=== PATIENT | female | born 1940 ===

== ENCOUNTER 2021-07-27 13:08 | Emergency (ER) | payer MEDICARE, OTHER ==
[2021-07-27] MEDS ORDERED: PROPARACAINE 0.5% OPHTH DROPS 15 ML BTL BOTH EYES STA (14:00)
--- NOTE | 2021-07-27 14:19 | CT ---
EXAMINATION TYPE: CT brain wo con DATE OF EXAM: 07/27/2021 COMPARISON: None HISTORY: Headache and visual disturbance. CT DLP: 1158.[address] of the brain was performed. The ventricles, basal cisterns and sulci overlying the cerebral convexities demonstrate mild enlargem ent. There is no evidence for intracranial hemorrhage or sulcal effacement. There is decreased attenuation about the periventricular white matter and deep white matter of both c erebral hemispheres, compatible with chronic small vessel ischemia. Differential diagnosis does inclu de demyelination. No mass effects are seen.No midline shift. Osseous calvarium is intact. Chronic paranasal sinusitis. If symptoms persist consider MRI. IMPRESSION: 1. Age related atrophic and chronic small vessel ischemic change without acute intracranial process s een at this time.
--- NOTE | 2021-07-27 14:28 | ED ---
General Adult HPI - General Source: patient, family, RN notes reviewed, old records reviewed Mode of arrival: ambulatory Limitations: no limitations <Kali Guzman - Last Filed: 07/27/21 14:50> <Leah Lira - Last Filed: 07/27/21 22:54> - General Chief complaint: Headache Stated complaint: Headache Time Seen by Provider: 07/27/21 13:47 - History of Present Illness Initial comments: 80-year-old female history of hypertension diabetes presents for evaluation of headache. Patient had been seen by the community living coach and had reported some headache with visual disturbances. She has a history of migraine headaches. The history is obtained from the patient and her son who is at bedside. She does not speak fluent [place]. She reports that she's had headache over the past one month. Proximally 45 times which was preceded by a fluttering of light. She did have several episodes well where she felt that she lost vision in the right eye this was nearly completely black. She had taken Tylenol and went to sleep and had improvement to normal vision in her right eye when she woke. This is happened several times. No focal numbness or weakness. No chest pain. No fever. (Kali Guzman) - Related Data Allergies Allergy/AdvReac Type Severity Reaction Status Date / Time aspirin Allergy Rash/Hives Verified 07/27/21 13:11 Penicillins Allergy Rash/Hives Verified 07/27/21 13:11 Review of Systems ROS Other: All systems not noted in ROS Statement are negative. <Kali Guzman - Last Filed: 07/27/21 14:50> ROS Other: All systems not noted in ROS Statement are negative. <Leah Lira - Last Filed: 07/27/21 22:54> ROS Statement: Those systems with pertinent positive or pertinent negative responses have been documented in the HPI. Past Medical History Past Medical History: Diabetes Mellitus, Hypertension History of Any Multi-Drug Resistant Organisms: Unobtainable Past Surgical History: Cholecystectomy, Hysterectomy Additional Past Surgical History / Comment(s): Cattaract Smoking Status: Never smoker Past Alcohol Use History: None Reported Past Drug Use History: None Reported <Kali Guzman - Last Filed: 07/27/21 14:50> General Exam Limitations: no limitations General appearance: alert, in no apparent distress Head exam: Present: atraumatic, normocephalic Eye exam: Present: normal appearance, PERRL (6 mm bilaterally, very sluggish, there is faint corneal clouding. Intraocular pressures are 18 bilaterally.) ENT exam: Present: normal exam Neck exam: Present: normal inspection. Absent: tenderness, meningismus Respiratory exam: Present: normal lung sounds bilaterally. Absent: respiratory distress, wheezes Cardiovascular Exam: Present: regular rate, normal rhythm GI/Abdominal exam: Present: soft. Absent: distended, tenderness Extremities exam: Present: normal inspection, normal capillary refill. Absent: pedal edema, calf tenderness Back exam: Present: normal inspection, full ROM. Absent: tenderness Neurological exam: Present: alert, oriented X3, CN II-XII intact. Absent: motor sensory deficit Psychiatric exam: Present: normal affect, normal mood Skin exam: Present: warm, dry, intact. Absent: cyanosis, diaphoretic <Kali Guzman - Last Filed: 07/27/21 14:50> Course <Kali Guzman - Last Filed: 07/27/21 14:50> Vital Signs 07/27/21 07/27/21 07/27/21 13:12 16:20 17:45 Temperature 97.5 F L 98.1 F Pulse Rate 87 80 75 Respiratory 18 20 20 Rate Blood Pressure 134/58 119/72 121/63 O2 Sat by Pulse 95 97 96 Oximetry - Reevaluation(s) Reevaluation #1: 07/27/21 14:50 Patient care signed out to Dr. Lira at shift change awaiting laboratory testing, CT angiography and reevaluation. (Kali Guzman) EKG Findings - EKG Comments: EKG Findings:: EKG demonstrates sinus rhythm with PACs. Rate of 79. WV interval 156. QRS 112. QTC 447. No acute ST segment elevations or depressions <Leah Lira - Last Filed: 07/27/21 22:54> Medical Decision Making <Kali Guzman - Last Filed: 07/27/21 14:50> - Lab Data Result diagrams: 07/27/21 14:58 07/27/21 14:58 <Leah Lira - Last Filed: 07/27/21 22:54> - Medical Decision Making 80-year-old female with presented with intermittent vision loss in the right eye over the past one month. This was often times associated with headache and a preceding visual disturbance. She has no complaints the time my evaluation. Her vision is at baseline. Her intraocular pressures are 19 bilaterally. I did discuss case with Dr. Clifton covering for neurology, he does recommend CT CT angiography. If this is within normal limits the patient may be able to follow up with ophthalmology as an outpatient. (Kali Guzman) Patient was signed out to me. She does over for a CT angios of her head and neck. It reveals no acute intracranial findings. Emphysema with possible pulmonary artery hypertension. This information is relayed to the patient. Patient will be discharged home and recommended ophthalmology follow-up. Dr. Oleary's contact information is provided on her discharge instructions. She should return to the emergency department for any new or worsening symptoms. Patient was discharged home in stable condition (Leah Lira) - Lab Data Lab Results 07/27/21 07/27/21 07/27/21 Range/Units 14:58 14:58 14:58 WBC 8.1 (3.8-10.6) k/uL RBC 4.88 (3.80-5.40) m/uL Hgb 14.5 (11.4-16.0) gm/dL Hct 45.7 (34.0-46.0) % MCV 93.7 (80.0-100.0) fL MCH 29.6 (25.0-35.0) pg MCHC 31.6 (31.0-37.0) g/dL RDW 13.3 (11.5-15.5) % Plt Count 189 (150-450) k/uL MPV 7.9 Neutrophils % 65 % Lymphocytes % 24 % Monocytes % 6 % Eosinophils % 3 % Basophils % 1 % Neutrophils # 5.2 (1.3-7.7) k/uL Lymphocytes # 2.0 (1.0-4.8) k/uL Monocytes # 0.5 (0-1.0) k/uL Eosinophils # 0.2 (0-0.7) k/uL Basophils # 0.1 (0-0.2) k/uL PT 10.3 (9.0-12.0) sec INR 1.0 (<1.2) APTT 23.5 (22.0-30.0) sec Sodium 139 (137-145) mmol/L Potassium 4.7 (3.5-5.1) mmol/L Chloride 102 (98-107) mmol/L Carbon Dioxide 27 (22-30) mmol/L Anion Gap 10 mmol/L BUN 21 H (7-17) mg/dL Creatinine 0.69 (0.52-1.04) mg/dL Est GFR (CKD-EPI)AfAm >90 (>60 ml/min/1.73 sqM) Est GFR (CKD-EPI)NonAf 83 (>60 ml/min/1.73 sqM) Glucose 81 (74-99) mg/dL Calcium 9.7 (8.4-10.2) mg/dL Magnesium 2.0 (1.6-2.3) mg/dL Total Bilirubin 0.5 (0.2-1.3) mg/dL AST 26 (14-36) U/L ALT 15 (4-34) U/L Alkaline Phosphatase 92 (38-126) U/L Total Protein 7.4 (6.3-8.2) g/dL Albumin 4.2 (3.5-5.0) g/dL Disposition <Kali Guzman - Last Filed: 07/27/21 14:50> Is patient prescribed a controlled substance at d/c from ED?: No Time of Disposition: 17:31 <Leah Lira - Last Filed: 07/27/21 22:54> Clinical Impression: Migraine, Visual disturbance Disposition: HOME SELF-CARE Condition: Stable Instructions (If sedation given, give patient instructions): Acute Headache (ED) Additional Instructions: Please follow up with the automotive repair technician in regards to your symptoms. Return to the emergency room for any new or worsening symptoms Referrals: Nonstaff,Physician [Primary Care Provider] - 1-2 days Bertha Oleary MD [STAFF PHYSICIAN] - 1-2 days
[2021-07-27 15:19] LABS: Basophils # (A) 0.1 k/uL (0-0.2); Basophils % (A) 1 %; Eosinophils # (A) 0.2 k/uL (0-0.7); Eosinophils % (A) 3 %; HCT 45.7 % (34.0-46.0); HGB 14.5 gm/dL (11.4-16.0); Lymphocytes % (A) 24 %; MCH 29.6 pg (25.0-35.0); MCHC 31.6 g/dL (31.0-37.0); MCV 93.7 fL (80.0-100.0); Mean Platelet Volume 7.9; Monocytes # (A) 0.5 k/uL (0-1.0); Monocytes % (A) 6 %; Neutrophils # (A) 5.2 k/uL (1.3-7.7); Neutrophils % (A) 65 %; Platelet Count 189 k/uL (150-450); RBC 4.88 m/uL (3.80-5.40); RDW 13.3 % (11.5-15.5); WBC 8.1 k/uL (3.8-10.6)
[2021-07-27 15:29] LABS: ALT 15 U/L (4-34); AST 26 U/L (14-36); African American GFR (CKD) >90 (>60 ml/min/1.73 sqM); Albumin 4.2 g/dL (3.5-5.0); Alkaline Phosphatase 92 U/L (38-126); Anion Gap 10 mmol/L; Blood Urea Nitrogen 21 mg/dL (7-17); Calcium 9.7 mg/dL (8.4-10.2); Carbon Dioxide 27 mmol/L (22-30); Chloride 102 mmol/L (98-107); Glucose 81 mg/dL (74-99); Non-African American GFR(CKD) 83 (>60 ml/min/1.73 sqM); Partial Thromboplastin Time 23.5 sec (22.0-30.0); Potassium 4.7 mmol/L (3.5-5.1); Prothrombin Time 10.3 sec (9.0-12.0); Sodium 139 mmol/L (137-145); Total Bilirubin 0.5 mg/dL (0.2-1.3); Total Protein 7.4 g/dL (6.3-8.2)
[2021-07-27 16:25] VITALS: RESP 20
--- NOTE | 2021-07-27 17:20 | CT ---
EXAMINATION TYPE: CT angio head neck DATE OF EXAM: 07/27/2021 HISTORY: Visual disturbance COMPARISON: CT brain same date CT DLP: 607.3 mGycm. Automated Exposure Control for Dose Reduction was Utilized. TECHNIQUE: CTA scan of the neck and brain is performed with IV Contrast, patient injected with 65 mL of Isovue 370, axial images are obtained, coronal and sagittal reformatted images are reviewed. 3D r econstructed images are created on an independent workstation and reviewed. FINDINGS: Carotid/Vascular Structures: Atheromatous changes are present, there is no hemodynamic significant st enosis of the proximal internal carotid arteries by NASCET criteria. There is no stenosis, embolus, d issection, or aneurysm evident within the [place]. Suspect origin of the posterior cer ebral artery in the right is present. Other: Prominence of pulmonary artery could be due to underlying pulmonary artery hypertension. There are coronary artery calcifications present. Emphysematous changes are present within the bilateral l ungs. Inflammatory changes are present in the maxillary sinuses, there may be mucus retention cyst pr esent on the right. IMPRESSION: No significant vascular abnormality is seen. Emphysema, possible pulmonary artery hypert ension, sinus disease NASCET criteria was used in interpretation of this exam?
[2021-07-27 17:47] VITALS: BP 121/63; PULSE 75; TEMP 98.1
== END 2021-07-27 17:47 | disposition home or self-care (01) ==
LOC: EC 13:08
DX: G43.909 Migraine, unspecified, not intractable, without status migrainosus (principal); H53.9 Unspecified visual disturbance; E11.9 Type 2 diabetes mellitus without complications; I10 Essential (primary) hypertension; Z88.6 Allergy status to analgesic agent; Z88.0 Allergy status to penicillin
CPT/HCPCS: 99284; 36415; 93005; 80053; 83735; 85025; 85610; 85730; 70496; 70450; 70498; Q9967